=== PATIENT | female | born 1955 | race Caucasian/White ===

== ENCOUNTER 2019-01-14 15:12 | Emergency (ER) | payer MEDICAID ==
[~2019-01-14] VITALS: Ht 154.9 cm; Wt 88.9 kg
[2019-01-14 15:20] VITALS: BP 148/82
[2019-01-14] MEDS ORDERED: NACL 0.9% 1,000 ML IV SCH (15:36)
[2019-01-14] MEDS ORDERED: KETOROLAC 30 MG/ML VIAL IVP ONE (15:40)
[2019-01-14 16:29] LABS: BASOPHILS % (AUTO) 0.3 % (0.0-2.0); EOSINOPHILS % (AUTO) 0.1 % (0.0-4.0); HEMATOCRIT 38.2 % (36-48); HEMOGLOBIN 12.8 g/dL (12.0-16.0); LYMPHOCYTES # (AUTO) 1.5 K/uL (2.5-16.5); LYMPHOCYTES % (AUTO) 18.2 % (20.5-51.1); MEAN CORPUSCULAR HEMOGLOBIN 30 pg (27-31); MEAN CORPUSCULAR HGB CONC 34 g/dL (33-37); MEAN CORPUSCULAR VOLUME 90.1 fL (80-94); MONOCYTES # (AUTO) 0.8 K/uL (0.8-1.0); MONOCYTES % (AUTO) 9.1 % (1.7-9.3); NEUTROPHILS % (AUTO) 72.3 % (42.2-75.2); PLATELET COUNT (AUTO) 212 K/uL (140-450); RED BLOOD CELL COUNT(AUTO) 4.24 MIL/uL (4.20-5.40); RED CELL DISTRIBUTION WIDTH 14.3 % (11.6-13.7); WHITE BLOOD COUNT (AUTO) 8.3 K/uL (4.8-10.8)
[2019-01-14 17:19] LABS: APPEARANCE,URINE SL CLOUDY (CLEAR); BILIRUBIN,URINE NEGATIVE (NEGATIVE); BLOOD, URINE NEGATIVE (NEGATIVE); COLOR,URINE YELLOW (YELLOW); LEUKOCYTE ESTERASE ,URINE NEGATIVE (NEGATIVE); NITRITE, URINE NEGATIVE (NEGATIVE); UGLUCOSE NEGATIVE (NEGATIVE)
[2019-01-14 17:20] LABS: ALBUMIN 3.8 g/dL (3.4-5.0); ANION GAP 16.5 (8-16); CREATININE 0.9 mg/dL (0.6-1.3); POTASSIUM 3.5 mmol/L (3.5-5.1); TOTAL BILIRUBIN 0.9 mg/dL (0.0-1.0)
[2019-01-14 17:32] LABS: RBC,URINE NONE SEEN /HPF (0-5); WBC,URINE 0-5 /HPF (0-5)
[2019-01-14 18:30] VITALS: BP 118/62
== END 2019-01-14 18:32 | disposition home or self-care (01) ==
LOC: MED 15:12
DX: R68.84 Jaw pain (principal); M79.10 Myalgia, unspecified site; J45.909 Unspecified asthma, uncomplicated; E11.9 Type 2 diabetes mellitus without complications
CPT/HCPCS: 36415; 71045; 80053; 81001; 82550; 83605; 84484; 85025; 87040; 87086; 93005; 96374; 99284; J1885; J7030; C1758

== ENCOUNTER 2019-01-15 05:45 | Emergency (ER) | payer MEDICAID ==
[~2019-01-15] VITALS: Ht 154.9 cm; Wt 68.0 kg
[2019-01-15 06:00] VITALS: BP 134/55
[2019-01-15 07:07] LABS: BASOPHILS % (AUTO) 0.2 % (0.0-2.0); HEMATOCRIT 38.3 % (36-48); HEMOGLOBIN 12.9 g/dL (12.0-16.0); LYMPHOCYTES # (AUTO) 1.3 K/uL (2.5-16.5); LYMPHOCYTES % (AUTO) 16.7 % (20.5-51.1); MEAN CORPUSCULAR HEMOGLOBIN 31 pg (27-31); MEAN CORPUSCULAR HGB CONC 34 g/dL (33-37); MEAN CORPUSCULAR VOLUME 90.8 fL (80-94); MONOCYTES # (AUTO) 0.6 K/uL (0.8-1.0); NEUTROPHILS # (AUTO) 6.2 K/uL (1.8-7.7); NEUTROPHILS % (AUTO) 76.1 % (42.2-75.2); PLATELET COUNT (AUTO) 203 K/uL (140-450); RED BLOOD CELL COUNT(AUTO) 4.21 MIL/uL (4.20-5.40); RED CELL DISTRIBUTION WIDTH 13.8 % (11.6-13.7); WHITE BLOOD COUNT (AUTO) 8.1 K/uL (4.8-10.8)
[2019-01-15 07:17] LABS: APPEARANCE,URINE CLEAR (CLEAR); BILIRUBIN,URINE NEGATIVE (NEGATIVE); BLOOD, URINE NEGATIVE (NEGATIVE); COLOR,URINE YELLOW (YELLOW); LEUKOCYTE ESTERASE ,URINE NEGATIVE (NEGATIVE); NITRITE, URINE NEGATIVE (NEGATIVE); UGLUCOSE NEGATIVE (NEGATIVE)
[2019-01-15 07:25] LABS: RBC,URINE 0-5 /HPF (0-5); WBC,URINE 0-5 /HPF (0-5)
[2019-01-15 07:25] LABS: ANION GAP 15.3 (8-16); CARBON DIOXIDE 24.2 mmol/L (21-32); POTASSIUM 3.5 mmol/L (3.5-5.1)
[2019-01-15 07:28] LABS: BARBITURATE, URINE NEG. ng/ml (NEG <=200); BENZODIAZEPINE, URINE NEG. ng/mL (NEG <=200); CANNABINOID, URINE NEG. ng/mL (NEG <=50); COCAINE, URINE NEG. ng/mL (NEG <=300); OPIATE, URINE NEG. ng/mL (NEG <=2000); PHENCYCLIDINE SCREEN,URINE NEG. ng/mL (NEG <=25)
[2019-01-15 12:22] VITALS: BP 146/79
== END 2019-01-15 11:38 | disposition home or self-care (01) ==
LOC: MED 05:45
DX: M79.18 Myalgia, other site (principal); R41.0 Disorientation, unspecified; R41.82 Altered mental status, unspecified; J45.909 Unspecified asthma, uncomplicated; E11.9 Type 2 diabetes mellitus without complications
CPT/HCPCS: 36415; 70450; 71045; 80053; 80305; 81001; 82140; 82948; 85025; 99284; Q0092